=== PATIENT | male | born 1950 | race Caucasian/White ===

== ENCOUNTER 2021-12-29 11:38 | Observation (INO) | payer OTHER ==
[2021-12-29 11:48] VITALS: BMI 24.2
[2021-12-29 13:20] LABS: BASO % 0.6 % (0-2.0); EOS % 1.4 % (0-4.5); HEMATOCRIT 43.8 % (35.4-49); HEMOGLOBIN 14.4 GM/dL (11.7-16.9); LYMPH % 27.3 % (8-40); MCH 25.8 pg (25.7-33.7); MEAN CELL VOLUME 78.1 fl (80-96); MEAN PLT VOLUME 10.1 fl (7.5-11.1); MONO % 11.7 % (3.8-10.2); PLATELET COUNT 159 10^3/uL (134-434); RDW 15.8 % (11.9-15.9); WHITE BLOOD COUNT 5.6 K/mm3 (4.0-10.0)
[2021-12-29 13:40] LABS: CALCIUM 9.1 mg/dL (8.5-10.1)
[2021-12-29 13:41] LABS: ALBUMIN 3.9 g/dl (3.4-5.0); BLOOD UREA NITROGEN 14.6 mg/dL (7-18)
[2021-12-29 13:44] LABS: CREATININE 1.1 mg/dL (0.55-1.3)
[2021-12-29 13:45] LABS: BILIRUBIN,TOTAL 0.4 mg/dL (0.2-1); TOT PROT 7.3 g/dl (6.4-8.2)
[2021-12-29] MEDS ORDERED: ACETAMINOPHEN 325 MG TABLET (FP) PO PRN (15:13)
[2021-12-29] MEDS ORDERED: ATORVASTATIN CA 40 MG TABLET (FP) PO SCH (22:00)
[2021-12-29] MEDS ORDERED: APIXABAN 5 MG TABLET ONE (22:06)
[2021-12-29] MEDS ORDERED: ACETAMINOPHEN 325 MG TABLET (FP) ONE (22:07)
[2021-12-29] MEDS ORDERED: ATORVASTATIN CA 40 MG TABLET (FP) ONE (22:07)
[2021-12-29] MEDS: APIXABAN 5 MG TABLET PO SCH (22:15)
[2021-12-30 06:51] VITALS: TEMP 97.6
[2021-12-30 07:42] LABS: BASO % 0.6 % (0-2.0); EOS % 2.2 % (0-4.5); HEMATOCRIT 43.5 % (35.4-49); HEMOGLOBIN 14.2 GM/dL (11.7-16.9); LYMPH % 29.4 % (8-40); MCH 25.6 pg (25.7-33.7); MCHC 32.6 g/dl (32.0-35.9); MEAN CELL VOLUME 78.6 fl (80-96); MEAN PLT VOLUME 10.6 fl (7.5-11.1); NEUT % 57.8 % (42.8-82.8); PLATELET COUNT 152 10^3/uL (134-434); RBC 5.53 M/mm3 (4.00-5.60); RDW 15.5 % (11.9-15.9); WHITE BLOOD COUNT 5.5 K/mm3 (4.0-10.0)
[2021-12-30 08:01] LABS: BLOOD UREA NITROGEN 14.9 mg/dL (7-18); MAGNESIUM 2.3 mg/dL (1.8-2.4)
[2021-12-30] MEDS ORDERED: TAMSULOSIN HCL 0.4 MG CAP ONE (08:14)
[2021-12-30 08:16] LABS: CREATININE 1.1 mg/dL (0.55-1.3)
[2021-12-30] MEDS ORDERED: TAMSULOSIN HCL 0.4 MG CAP PO SCH (08:30)
[2021-12-30] MEDS: APIXABAN 5 MG TABLET PO SCH (09:11)
[2021-12-30] MEDS ORDERED: PANTOPRAZOLE 40 MG TABLET PO ONE (09:12)
[2021-12-30] MEDS ORDERED: MAG HYDROX/AL HYDROX/SIMETH -MYLANTA- ORAL SUSPENSION PO ONE (09:38)
[2021-12-30] MEDS ORDERED: FINASTERIDE 5 MG TABLET (FP) PO SCH (10:00)
[2021-12-30] MEDS ORDERED: PANTOPRAZOLE 40 MG TABLET PO SCH (10:00)
[2021-12-30] MEDS ORDERED: MAG HYDROX/AL HYDROX/SIMETH 30 ML UNIT-DOSE CUP ONE (10:34)
[2021-12-30 15:01] VITALS: BP 130/81; PULSE 67
== END 2021-12-30 17:54 | disposition home or self-care (01) ==
LOC: JER 11:38 → JERBED 14:12
PROVIDERS: ADMIT Internal Medicine
DX: I48.91 Unspecified atrial fibrillation (principal); R94.31 Abnormal electrocardiogram [ECG] [EKG]; M54.9 Dorsalgia, unspecified; E78.5 Hyperlipidemia, unspecified; R73.09 Other abnormal glucose; E78.00 Pure hypercholesterolemia, unspecified; Z79.01 Long term (current) use of anticoagulants
CPT/HCPCS: 36415; 71045-TC-FY; 80048; 80053; 80061; 83036; 83735; 84443; 84484; 85025; 93005; 93010; 93306-TC; 99285-25; C9803-CS; G0378; U0003; U0005

== ENCOUNTER 2022-10-30 14:22 | Observation (INO) | payer OTHER ==
[2022-10-30 14:49] VITALS: BMI 24.2
[2022-10-30 15:43] LABS: BASO % 0.7 % (0-2.0); EOS % 1.4 % (0-4.5); HEMATOCRIT 45.7 % (35.4-49); HEMOGLOBIN 15.2 GM/dL (11.7-16.9); LYMPH % 21.6 % (8-40); MCH 25.3 pg (25.7-33.7); MCHC 33.3 g/dl (32.0-35.9); MEAN CELL VOLUME 75.9 fl (80-96); MEAN PLT VOLUME 10.8 fl (7.5-11.1); MONO % 10.9 % (3.8-10.2); NEUT % 65.4 % (42.8-82.8); PLATELET COUNT 174 10^3/uL (134-434); RBC 6.03 M/mm3 (4.00-5.60); RDW 15.5 % (11.9-15.9); WHITE BLOOD COUNT 7.5 K/mm3 (4.0-10.0)
[2022-10-30 15:53] LABS: INR 1.37 (0.83-1.09); PROTHROMBIN TIME (PATIENT) 15.8 SEC (9.7-13.0)
[2022-10-30 15:55] LABS: ACTIVATED PTT 34.1 SECONDS (25.2-36.5)
[2022-10-30 16:04] LABS: CALCIUM 9.1 mg/dL (8.5-10.1)
[2022-10-30 16:05] LABS: ALBUMIN 4.1 g/dl (3.4-5.0); BLOOD UREA NITROGEN 15.4 mg/dL (7-18)
[2022-10-30 16:09] LABS: TOT PROT 7.8 g/dl (6.4-8.2)
[2022-10-30 16:10] LABS: BILIRUBIN,TOTAL 0.5 mg/dL (0.2-1)
[2022-10-30 19:30] LABS: N-TERMINAL BNP 2708.3 pg/ml (5-125)
[2022-10-30] MEDS: ATORVASTATIN CA 40 MG TABLET (FP) PO SCH (22:06)
[2022-10-30] MEDS: PANTOPRAZOLE 40 MG TABLET PO SCH (22:06)
[2022-10-30] MEDS: APIXABAN 5 MG TABLET PO SCH (22:06)
[2022-10-31 08:23] LABS: BASO % 0.6 % (0-2.0); EOS % 1.6 % (0-4.5); HEMATOCRIT 40.9 % (35.4-49); LYMPH % 21.9 % (8-40); MCH 25.7 pg (25.7-33.7); MCHC 34.3 g/dl (32.0-35.9); MEAN CELL VOLUME 75.1 fl (80-96); MEAN PLT VOLUME 11.5 fl (7.5-11.1); MONO % 10.8 % (3.8-10.2); NEUT % 65.1 % (42.8-82.8); PLATELET COUNT 141 10^3/uL (134-434); RBC 5.45 M/mm3 (4.00-5.60); RDW 15.4 % (11.9-15.9); WHITE BLOOD COUNT 6.8 K/mm3 (4.0-10.0)
[2022-10-31 08:40] LABS: ALBUMIN 3.4 g/dl (3.4-5.0); BLOOD UREA NITROGEN 13.6 mg/dL (7-18); CALCIUM 8.6 mg/dL (8.5-10.1); MAGNESIUM 2.1 mg/dL (1.8-2.4)
[2022-10-31 08:42] LABS: CHOLESTEROL 101 mg/dL (50-200)
[2022-10-31 08:43] LABS: CREATININE 0.9 mg/dL (0.55-1.3); PHOSPHOROUS 3.2 mg/dL (2.5-4.9); TRIGLYCERIDES 55 mg/dL (0-150)
[2022-10-31 08:44] LABS: LDL CHOLESTEROL (ONLY SJRH) 49 mg/dL (5-100)
[2022-10-31 08:45] LABS: BILIRUBIN,TOTAL 0.9 mg/dL (0.2-1); HDL CHOLESTEROL 52 mg/dL (40-60); TOT PROT 6.3 g/dl (6.4-8.2)
[2022-10-31] MEDS ORDERED: PANTOPRAZOLE 40 MG TABLET PO SCH (10:00)
[2022-10-31] MEDS: FINASTERIDE 5 MG TABLET (FP) PO SCH (10:00)
[2022-10-31] MEDS: APIXABAN 5 MG TABLET PO SCH ×2 (10:00→21:25)
[2022-10-31] MEDS: PANTOPRAZOLE 40 MG TABLET PO SCH ×2 (10:00→21:25)
[2022-10-31] MEDS ORDERED: SODIUM CHLORIDE 1,000 ML IV SCH (11:30)
[2022-10-31] MEDS ORDERED: metoPROLOL SUCCINATE 25 MG TAB.SR.24H (FP) PO ONE (17:42)
[2022-10-31] MEDS ORDERED: ACETAMINOPHEN 325 MG TABLET (FP) PO PRN (18:01)
[2022-10-31 21:24] LABS: PH,URINE 6.5 (5.0-8.0); URINE APPEARANCE CLEAR; URINE BILIRUBIN NEGATIVE (NEGATIVE); URINE COLOR YELLOW; URINE GLUCOSE (UA) NEGATIVE (NEGATIVE); URINE KETONE NEGATIVE (NEGATIVE); URINE LEUK ESTERASE NEGATIVE (NEGATIVE); URINE NITRITE NEGATIVE (NEGATIVE); URINE PROTEIN NEGATIVE (NEGATIVE); URINE UROBILINOGEN 0.2 mg/dL (0.2-1.0)
[2022-10-31] MEDS: ATORVASTATIN CA 40 MG TABLET (FP) PO SCH (21:25)
[2022-11-01 06:33] VITALS: PULSE 59
[2022-11-01] MEDS: PANTOPRAZOLE 40 MG TABLET PO SCH (09:41)
[2022-11-01] MEDS: FINASTERIDE 5 MG TABLET (FP) PO SCH (09:41)
[2022-11-01] MEDS: APIXABAN 5 MG TABLET PO SCH (09:41)
[2022-11-01 10:09] LABS: CALCIUM 8.2 mg/dL (8.5-10.1)
[2022-11-01 10:10] LABS: BLOOD UREA NITROGEN 12.4 mg/dL (7-18)
[2022-11-01 10:13] LABS: CREATININE 0.9 mg/dL (0.55-1.3)
[2022-11-01 11:32] VITALS: BP 128/78; RESP 96; TEMP 97.5
== END 2022-11-01 17:23 | disposition home or self-care (01) ==
LOC: JER 14:22 → JERBED 17:21 → J4S 21:26
PROVIDERS: ADMIT Student in an Organized Health Care Education/Training Program; ATTEND Internal Medicine
PROC: 3E0337Z Introduction of Electrolytic and Water Balance Substance into Peripheral Vein, Percutaneous Approach (ICD-10-PCS; principal; 2022-10-30)
DX: I25.10 Atherosclerotic heart disease of native coronary artery without angina pectoris (principal); I11.9 Hypertensive heart disease without heart failure; F41.8 Other specified anxiety disorders; I47.1 Supraventricular tachycardia; E78.5 Hyperlipidemia, unspecified; Z79.01 Long term (current) use of anticoagulants; Z29.8 Encounter for other specified prophylactic measures
CPT/HCPCS: 0241U-QW; 36415; 71045-TC-FY; 80048; 80053; 80061; 81003; 82962; 83735; 83880; 84100; 84443; 84484; 85025; 85610; 85730; 87086; 93005; 93010; 93306-TC; 96360; 97116-GP; 97162-GP; 99285-25; G0378

== ENCOUNTER 2023-03-31 05:03 | Day surgery (SDC) | payer OTHER ==
[2023-03-25 07:49] VITALS: BMI 23.3
[2023-03-31 14:39] VITALS: TEMP 97
[2023-03-31 14:42] VITALS: RESP 20
[2023-03-31 14:43] VITALS: BP 140/56; PULSE 60
== END 2023-03-31 12:30 | disposition home or self-care (01) ==
LOC: JASU-ENDO 05:03
PROVIDERS: ATTEND Student in an Organized Health Care Education/Training Program
PROC: 0DBN8ZX Excision of Sigmoid Colon, Via Natural or Artificial Opening Endoscopic, Diagnostic (ICD-10-PCS; 2023-03-31)
PROC: 0DBM8ZX Excision of Descending Colon, Via Natural or Artificial Opening Endoscopic, Diagnostic (ICD-10-PCS; 2023-03-31)
PROC: 0DBM8ZX Excision of Descending Colon, Via Natural or Artificial Opening Endoscopic, Diagnostic (ICD-10-PCS; principal; 2023-03-31 10:30)
DX: Z12.11 Encounter for screening for malignant neoplasm of colon (principal); D12.4 Benign neoplasm of descending colon; D12.5 Benign neoplasm of sigmoid colon; K64.8 Other hemorrhoids; K57.30 Diverticulosis of large intestine without perforation or abscess without bleeding; I10 Essential (primary) hypertension
CPT/HCPCS: 88305-TC